=== PATIENT | female | born 1985 | race Caucasian/White ===

== ENCOUNTER 2019-02-17 06:45 | Day surgery (SDC) | payer OTHER ==
[~2019-02-17] VITALS: Ht 162.6 cm; Wt 88.0 kg
[~2019-02-17 06:45] MED LIST: SODIUM CHLORIDE 0.9% 1,000 ML IV ONE
[2019-02-17] MEDS ORDERED: ALBUTEROL SULFATE 2.5 MG/0.5 ML NEB SOLUTION NEB ONE (06:46)
[2019-02-17] MEDS ORDERED: BENZOCAINE 20% 50 MCG/SPRAY 57 GM TP ONE (06:46)
[2019-02-17] MEDS ORDERED: LIDOCAINE 4% 50 ML SOLUTION TP ONE (06:46)
[2019-02-17] MEDS ORDERED: LIDOCAINE 2% 30 ML JELLY TP ONE (06:46)
[2019-02-17] MEDS ORDERED: THYR30 PO (08:11)
[2019-02-17] MEDS ORDERED: GABA-529 PO (08:11)
[2019-02-17] MEDS ORDERED: TOFA5TAB PO (08:11)
[2019-02-17] MEDS ORDERED: FentaNYL CITRATE-PF 100 MCG/2 ML VIAL ONE (08:20)
[2019-02-17] MEDS ORDERED: MIDAZOLAM HCL 2 MG/2 ML VIAL ONE (08:20)
[2019-02-17] MEDS ORDERED: MethylPREDNISolone SOD SUCC 125 MG/2 ML VIAL IVP ONE (09:00)
[2019-02-17] MEDS ORDERED: MethylPREDNISolone SOD SUCC 125 MG/2 ML VIAL ONE (09:16)
[2019-02-17] MEDS ORDERED: OXYGEN THERAPY IH SCH (20:00)
== END 2019-02-17 10:30 | disposition home or self-care (01) ==
LOC: SURGERY 06:45
PROVIDERS: ATTEND Internal Medicine Critical Care Medicine
DX: R05 Cough (principal); R91.1 Solitary pulmonary nodule; J34.89 Other specified disorders of nose and nasal sinuses; J98.8 Other specified respiratory disorders; J38.4 Edema of larynx; B37.0 Candidal stomatitis; Z88.2 Allergy status to sulfonamides; Z88.1 Allergy status to other antibiotic agents
CPT/HCPCS: 31623; 31624; 71045; 84703; 87015; 87070; 87101; 87205; 87206; 87220; 88108; 88312; J2250; J2930; J7030; J3010